=== PATIENT | female | born 1940 | race Caucasian/White ===

== ENCOUNTER 2016-10-18 10:41 | Emergency (ER) | payer MEDICARE, OTHER ==
[2016-10-18 11:53] LABS: BILIRUBIN NEGATIVE (NEGATIVE); BLOOD TRACE-INTACT Ery/uL (NEGATIVE); CLARITY HAZY (CLEAR); COLOR YELLOW (YELLOW); GLUCOSE (U) NORMAL (NORMAL); KETONE (U) NEGATIVE (NEGATIVE); LEUKOCYTES 3+ Leu/uL (NEGATIVE); NITRITE NEGATIVE (NEGATIVE); PROTEIN TRACE (LOW) mg/dL (NEGATIVE); SPECIFIC GRAVITY 1.015 (1.001-1.030); UROBILINOGEN 0.2 mg/dL (0.2-1.0)
[2016-10-18 12:02] LABS: BACTERIA 1+; URINARY WBC 20-50
[2016-10-18 12:53] LABS: BASOPHIL 0.3 % (0-2); EOSINOPHIL 0.8 % (0-7); HCT 37.6 % (37.0-47.0); HGB 13.1 g/dl (12.5-16.0); LYMPHOCYTE 21.9 % (15-48); MCH 30.8 pg (25.0-31.0); MCHC 34.8 g/dL (32.0-36.0); MCV 88.5 fL (78.0-100.0); MONOCYTE 7.9 % (0-12); MPV 9.7 fL (6.0-9.5); NEUTROPHIL 69.1 % (41-80); PLT 254 K/uL (150-400); RBC 4.25 M/uL (4.20-5.40); WBC 8.9 K/uL (4.0-10.5)
[2016-10-18 13:00] LABS: CREATININE 1.1 mg/dL (0.5-1.0); POTASSIUM 4.2 mmol/L (3.5-5.1)
== END 2016-10-18 14:46 | disposition home or self-care (01) ==
LOC: FER 10:41
PROVIDERS: Internal Medicine
DX: I95.89 Other hypotension (principal); N39.0 Urinary tract infection, site not specified
CPT/HCPCS: 36415; 80048; 81001; 85025; 87088; 93005